=== PATIENT | female | born 1940 | race Caucasian/White ===

== ENCOUNTER → 2018-01-31 13:42 | Outpatient (CLI) | payer MEDICARE, MEDICAID, SELFPAY ==
--- NOTE | 2018-01-31 13:44 | CT_ITS ---
STUDY: CT CHEST WITHOUT CONTRAST REASON FOR EXAM: Female, 77 years old. Lung nodule, pulmonary fibrosis RADIATION DOSAGE (If Supplied By Facility): CTDIvol = ( 18.66 ) mGy, DLP = ( 540.76 ) mGycm TECHNIQUE: Transaxial imaging was performed without the administration of intravenous contrast material. Multiplanar coronal and sagittal images were reformatted. Individualized dose optimization techniques were used for this CT. COMPARISON: None. FINDINGS: The lungs are abnormal. There is subpleural honeycombing bilaterally consistent with pulmonary fibrosis. There is thickening of the septa. There is no demonstrated pleural abnormality. Coronary artery calcifications are seen. There are multiple small lymph nodes within the mediastinum, which are normal in size and morphology most compatible with reactive lymph hyperplasia. Normal hilar regions. Normal unenhanced pulmonary arteries. There is atherosclerotic calcification of the aortic arch with tortuosity and elongation of the aortic arch and descending thoracic aorta. There is an increased kyphosis of the thoracic spine. There is a small hiatal hernia. CT/Chest without Contrast IMPRESSION: Pulmonary fibrosis. No discrete nodule. Electronically Signed: Dada Rodgers DO at 13:49 EDT Tel , Service support ,
[2018-01-31 16:22] LABS: AST(SGOT) 18 U/L (15-37); Alanine Aminotransfer ALT/SGPT 19 U/L (13-56); Albumin, Serum 3.4 g/dL (3.2-5.0); Alkaline Phosphatase 118 U/L (45-117); Bilirubin, Direct 0.08 mg/dL (0.00-0.30); Globulin 3.6 g/dL (2.2-4.2)
== END ==
PROVIDERS: Family Provider Nurse Practitioner; PCP Nurse Practitioner; Visit Provider Internal Medicine Critical Care Medicine
DX: J84.10 Pulmonary fibrosis, unspecified (principal)
CPT/HCPCS: 36415; 71250; 80076

== ENCOUNTER → 2018-02-07 10:53 | Outpatient (CLI) | payer MEDICARE, MEDICAID, SELFPAY ==
[2018-02-07 11:00] VITALS: PULSE 105; PULSE 111; PULSE 115; PULSE 117; PULSE 119; PULSE 125; PULSE 99; O2SAT 82; O2SAT 88; O2SAT 92; O2SAT 94; O2SAT 96; O2SAT 97; O2SAT 98
--- NOTE | 2018-02-07 11:44 | CPS ---
Pt started at 94% RA. At 1 minute pt sats 82% increased to 2L NC and sats went up to 92%. Pt continued to walk and at minute 3 sat dropped to 88% and increased to 3L NC. Pt sat increased to 92%. Increased SOB throughout test. Pt states her son is her primary caregiver and refuses to take her anywhere if she is wearing oxygen and tells her she does not need it. Pt is interested in home health but states her current pillowcase cleaner can't find anyone to help her.
--- NOTE | 2018-02-07 13:46 | PCM.PSN.6M ---
PSN 6 Minute Walk Test - 6 Minute Walk Test 6 Minute Walk Test: 6 Minute Walk Test PSN:6-Minute Walk Test Start: 02/07/18 11:33 Freq: Status: Active Protocol: RESP.6MINW Document 02/07/18 11:00 SMB (Rec: 02/07/18 12:07 SMB [id number]) 6 Minute Walk Test Date Performed 02/07/18 Time Performed 11:00 Height 4 ft 11 in Weight: 180 lb Weight in Pounds 180.[address]: Kendell Bishop Assistive device used: None Pre-test Oxygen Delivery Method Room Air Pulse Ox (%) 94 Pulse Rate (60-100 beats/min) 99 Dyspnea Yuki Scale (0-10) 3 Exertion Yuki Scale (6-20) 8 1st minute Oxygen Delivery Method Room Air Pulse Ox (%) 82 Pulse Rate (60-100 beats/min) 119 H Number of Rests Taken 1 2nd minute Oxygen Flow Rate (L/min) (L/min) 2 Oxygen Delivery Method Nasal Cannula Pulse Ox (%) 92 Pulse Rate (60-100 beats/min) 117 H 3rd minute Oxygen Flow Rate (L/min) (L/min) 2 Oxygen Delivery Method Nasal Cannula Pulse Ox (%) 88 Pulse Rate (60-100 beats/min) 125 H Number of Rests Taken 1 4th minute Oxygen Flow Rate (L/min) (L/min) 3 Oxygen Delivery Method Nasal Cannula Pulse Ox (%) 92 Pulse Rate (60-100 beats/min) 117 H Reported Symptoms Increased Work of Breathing 5th minute Oxygen Flow Rate (L/min) (L/min) 3 Oxygen Delivery Method Nasal Cannula Pulse Ox (%) 97 Pulse Rate (60-100 beats/min) 115 H Number of Rests Taken 1 Reported Symptoms Increased Work of Breathing 6th minute Oxygen Flow Rate (L/min) (L/min) 3 Oxygen Delivery Method Nasal Cannula Pulse Ox (%) 96 Pulse Rate (60-100 beats/min) 111 H Reported Symptoms Increased Work of Breathing Post-test Oxygen Flow Rate (L/min) (L/min) 3 Oxygen Delivery Method Nasal Cannula Pulse Ox (%) 98 Pulse Rate (60-100 beats/min) 105 H Dyspnea Yuki Scale (0-10) 4 Exertion Yuki Scale (6-20) 15 Full Laps Walked 6 Partial Lap, Number of Tiles Walked 0 Total Distance Walked (ft) 354 02/07/18 11:44 Cardiopulmonary Services by Kaylee De La Torre Pt started at 94% RA. At 1 minute pt sats 82% increased to 2L NC and sats went up to 92%. Pt continued to walk and at minute 3 sat dropped to 88% and increased to 3L NC. Pt sat increased to 92%. Increased SOB throughout test. Pt states her son is her primary caregiver and refuses to take her anywhere if she is wearing oxygen and tells her she does not need it. Pt is interested in home health but states her current rn case manager can't find anyone to help her. Initialized on 02/07/18 11:44 - END OF NOTE - Interpretation Interpretation: The patient ambulated 354 feet over the course of 6 minutes beginning on room air without assistive devices or breaks. Pretesting oxygen saturation was noted to be 94% on room air. By minute 1 of testing, the patient had desaturated to 82%. 2 L/min of supplemental oxygen was applied. The patient again desaturated to 88% at minute 3 of testing. Supplemental oxygen flow rate was increased to 3 L/min. The patient was then able to complete the remainder of the test while maintaining appropriate oxygen saturations. There was evidence of significant exertional hypoxia, impaired walk distance and physiologic tachycardia with exertion. - Recommendations Recommendations: 3 L/min of supplemental oxygen should be utilized with exertion.
--- NOTE | 2018-02-07 13:49 | WT_ITS ---
PSN 6 Minute Walk Test - 6 Minute Walk Test 6 Minute Walk Test: 6 Minute Walk Test PSN:6-Minute Walk Test Start: 02/07/18 11: 33 Freq: Status: Active Protocol: RESP.6MINW Document 02/07/18 11:00 SMB (Rec: 02/07/18 12:07 SMB [id number]) 6 Minute Walk Test Date Performed 02/07/18 Time Performed 11:00 Height 4 ft 11 in Weight: 180 lb Weight in Pounds 180.[address]: Kendell Bishop Assistive device used: None Pre-test Oxygen Delivery Method Room Air Pulse Ox (%) 94 Pulse Rate (60-100 beats/min) 99 Dyspnea Yuki Scale (0-10) 3 Exertion Yuki Scale (6-20) 8 1st minute Oxygen Delivery Method Room Air Pulse Ox (%) 82 Pulse Rate (60-100 beats/min) 119 H Number of Rests Taken 1 2nd minute Oxygen Flow Rate (L/min) (L/min) 2 Oxygen Delivery Method Nasal Cannula Pulse Ox (%) 92 Pulse Rate (60-100 beats/min) 117 H 3rd minute Oxygen Flow Rate (L/min) (L/min) 2 Oxygen Delivery Method Nasal Cannula Pulse Ox (%) 88 Pulse Rate (60-100 beats/min) 125 H Number of Rests Taken 1 4th minute Oxygen Flow Rate (L/min) (L/min) 3 Oxygen Delivery Method Nasal Cannula Pulse Ox (%) 92 Pulse Rate (60-100 beats/min) 117 H Reported Symptoms Increased Work of Breathing 5th minute Oxygen Flow Rate (L/min) (L/min) 3 Oxygen Delivery Method Nasal Cannula Pulse Ox (%) 97 Pulse Rate (60-100 beats/min) 115 H Number of Rests Taken 1 Reported Symptoms Increased Work of Breathing 6th minute Oxygen Flow Rate (L/min) (L/min) 3 Oxygen Delivery Method Nasal Cannula Pulse Ox (%) 96 Pulse Rate (60-100 beats/min) 111 H Reported Symptoms Increased Work of Breathing Post-test Oxygen Flow Rate (L/min) (L/min) 3 Oxygen Delivery Method Nasal Cannula Pulse Ox (%) 98 Pulse Rate (60-100 beats/min) 105 H Dyspnea Yuki Scale (0-10) 4 Exertion Yuki Scale (6-20) 15 Full Laps Walked 6 Partial Lap, Number of Tiles Walked 0 Total Distance Walked (ft) 354 02/07/18 11:44 Cardiopulmonary Services by Kaylee De La Torre Pt started at 94% RA. At 1 minute pt sats 82% increased to 2L NC and sats went up to 92%. Pt continued to walk and at minute 3 sat dropped to 88% and increased to 3L NC. Pt sat increased to 92%. Increased SOB throughout test. Pt states her son is her primary caregiver and refuses to take her anywhere if she is wearing oxygen and tells her she does not need it. Pt is interested in home health but states her current shelter case manager can't find anyone to help her. Initialized on 02/07/18 11:44 - END OF NOTE - Interpretation Interpretation: The patient ambulated 354 feet over the course of 6 minutes beginning on room air without assistive devices or breaks. Pretesting oxygen saturation was noted to be 94% on room air. By minute 1 of testing, the patient had desaturated to 82%. 2 L/min of supplemental oxygen was applied. The patient again desaturated to 88% at minute 3 of testing. Supplemental oxygen flow rate was increased to 3 L/min. The patient was then able to complete the remainder of the test while maintaining appropriate oxygen saturations. There was evidence of significant exertional hypoxia, impaired walk distance and physiologic tachycardia with exertion. - Recommendations Recommendations: 3 L/min of supplemental oxygen should be utilized with exertion.
== END ==
PROVIDERS: Family Provider Nurse Practitioner; PCP Nurse Practitioner; Visit Provider Internal Medicine Critical Care Medicine
DX: J84.10 Pulmonary fibrosis, unspecified (principal)
CPT/HCPCS: 94618

== ENCOUNTER → 2018-02-08 11:44 | Outpatient (CLI) | payer MEDICARE, MEDICAID, SELFPAY | PROVIDERS: Family Provider Nurse Practitioner; PCP Nurse Practitioner; Visit Provider Internal Medicine | DX: R69 Illness, unspecified (principal) ==

== ENCOUNTER → 2018-02-09 09:18 | Outpatient (CLI) | payer MEDICARE, MEDICAID, SELFPAY ==
[2018-02-09 11:11] LABS: Vitamin B12 809 pg/mL (211-911)
[2018-02-09 11:12] LABS: Absolute Neutrophil Count 6.8 X10^3/uL (2.0-7.7); Basophil# 0.01 X10^3/uL; Basophil% 0.1 % (0-1); Eosinophil# 0.14 X10^3/uL; Eosinophils% 1.8 % (0-5); Hematocrit 35.2 % (37-47); Hemoglobin 10.2 g/dl (12.0-15.0); Immature Platelet Fraction 1.8 % (1.0-7.9); Lymphocyte % 7.6 % (19-41); Mean Corpuscular Hgb 22.9 pg (27.0-32.0); Mean Corpuscular Volume 78.9 fL (81-99); Mean Platelet Vol. 9.6 fl (6.2-12.0); Monocyte# 0.37 X10^3/uL; Monocyte% 4.7 % (0-10); Neutrophil # 6.79 X10^3/uL (2.7-7.7); Neutrophil % 85.5 % (47-70); Platelet Count 250 K/mm3 (150-450); RBC Distribution Width CV 25.1 % (11.6-14.6); RET-HE 27.2 pg (30-35); Red Blood Count 4.46 M/mm3 (4.2-5.4); Reticulocyte Count 4.13 % (0.5-1.5); White Blood Count 7.9 K/mm3 (4.4-11.0)
[2018-02-09 11:13] LABS: Differential Indicated SCAN CRITERIA MET; POSITIVE COUNT NO; POSITIVE DIFFERENTIAL YES; POSITIVE MORPHOLOGY YES
[2018-02-09 11:14] LABS: Platelet Estimate ADEQUATE (ADEQ); Platelet Morphology GIANT
[2018-02-09 11:15] LABS: Anisocytosis 2+; Ovalocyte 2+
[2018-02-09 11:16] LABS: Ferritin 35 ng/mL (8-252); Iron 93 ug/dL (50-170); Iron Binding Capacity,Total 419 ug/dL (250-450); LDH 195 U/L (84-246); PERCENT IRON SATURATION 22.2 % (15.0-55.0)
[2018-02-12 16:10] LABS: PROEL- A/G Ratio 1.1 (0.7-1.7); PROEL- Albumin 3.5 g/dL (2.9-4.4); PROEL- Alpha-1 Globulin 0.3 g/dL (0.0-0.4); PROEL- Beta Globulin 1.1 g/dL (0.7-1.3); PROEL- Gamma Globulin 0.9 g/dL (0.4-1.8); PROEL- Globulin, Total 3.3 g/dL (2.2-3.9); PROEL- TOTAL PROTEIN 6.8 g/dL (6.0-8.5)
[2018-02-12 16:41] LABS: Methylmalonic Acid Bld 475 nmol/L (0-378)
[2018-02-13 16:09] LABS: PROELU- Albumin, Urine 29.3 % (.); PROELU- Alpha-1-Globulin,Ur 3.7 % (.); PROELU- Alpha-2-Globulin,Ur 20.3 % (.); PROELU- Gamma Globulin, Ur 16.6 % (.); Total Protein, Ur 15.5 mg/dL (Not Estab.)
[2018-02-14 11:31] LABS: Haptoglobin 223 mg/dL (34-200)
== END ==
PROVIDERS: Family Provider Nurse Practitioner; PCP Nurse Practitioner; Visit Provider Internal Medicine
DX: D64.9 Anemia, unspecified (principal)
CPT/HCPCS: 36415; 82607; 82728; 82746; 83010; 83540; 83550; 83615; 83921; 84165; 84166; 85025; 85045

== ENCOUNTER → 2018-02-15 13:01 | Outpatient (CLI) | payer MEDICARE, SELFPAY ==
--- NOTE | 2018-02-16 08:01 | PFTCOMP ---
COMPLETE PULMONARY FUNCTION TEST INTERPRETATION Brief HPI: Patient is a 77 year old female, currently under the care of myself, who presents to [facility] for complete pulmonary function tests secondary to diagnosis of pulmonary fibrosis. Respiratory therapist reports good effort and reproducible results. Interpretation: Forced expiration spirometry shows no large airways obstructive ventilatory defect with an FEV1 of 94% predicted. There is no significant bronchodilator response by ATS criteria. Spirograms are of good quality and plateau normally. The respiratory flow volume loop shows a normal pattern. Lung volumes by body plethysmography show a normal total lung capacity at 3.68 L, 98% predicted. All other lung volumes are within normal limits. Diffusion capacity by carbon monoxide is decreased at 41% predicted. The airway resistance is elevated. No previous pulmonary function tests were available for review. Impression: Isolated reduction diffusing capacity consistent with a pulmonary vascular disorder.
== END ==
PROVIDERS: Family Provider Nurse Practitioner; PCP Nurse Practitioner; Visit Provider Internal Medicine Critical Care Medicine
DX: J84.10 Pulmonary fibrosis, unspecified (principal)
CPT/HCPCS: 94060; 94726; 94729

== ENCOUNTER → 2018-02-16 14:05 | Outpatient (CLI) | payer MEDICARE, SELFPAY ==
--- NOTE | 2018-02-16 | LES_PTH ---
PATIENT: STUART BACH LOC: [facility] U#:[id number] AGE/SX: 85/F ROOM: RE02/16/[address]: Dr. 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 SJ:jessica 02/19/18 MICROSCOPIC DESCRIPTION Slides are reviewed. GROSS DESCRIPTION Received in fixative is one container labeled with the patient's name and designated lesion of right lower lid. The specimen consists of a piece of riojas-white skin measuring 0.5 x 0.5 x 0.3 cm. The specimen is inked and submitted entirely in one cassette. It will be bisected at the time of the time of embedding. / SJ:rg 02/16/18 TC:5 CPT: 97669
== END ==
PROVIDERS: Family Provider Nurse Practitioner; Visit Provider Ophthalmology
DX: H02.822 Cysts of right lower eyelid (principal)
CPT/HCPCS: 88305

== ENCOUNTER → 2018-04-16 14:54 | Outpatient (CLI) | payer MEDICARE, SELFPAY ==
[2018-04-16 17:11] LABS: Rheumatoid Factor < 10.0 IU/mL (<15)
[2018-04-19 16:03] LABS: ANTINUCLEAR ANTIBODIES DIRECT Negative (Negative)
[2018-04-20 03:06] LABS: Cytoplasmic Ab (C-ANCA) <1:20 titer (Neg:<1:20)
[2018-04-20 11:56] LABS: CCP IgG Antibodies 5 units (0-19); Perinuclear Ab (P-ANCA) <1:20 titer (Neg:<1:20)
== END ==
PROVIDERS: Family Provider Nurse Practitioner; PCP Nurse Practitioner; Visit Provider Internal Medicine Critical Care Medicine
DX: J84.10 Pulmonary fibrosis, unspecified (principal)
CPT/HCPCS: 36415; 86038; 86200; 86225; 86235; 86256; 86431

== ENCOUNTER → 2018-05-02 13:51 | Outpatient (CLI) | payer MEDICARE, SELFPAY ==
--- NOTE | 2018-05-02 13:53 | ECHOCS_ITS ---
Reason For Study: PHTN Procedure This was a 2D Doppler, Color Flow transthoracic echocardiogram. Exam performed in department. Left Ventricle Normal size and thickness. The estimated ejection fraction is 65 %. Stage 1 diastolic dysfunction. No regional wall motion abnormalities noted. Right Ventricle Normal size and thickness. Normal systolic function. Atria Normal left atrium. Normal right atrium. Normal atrial septum. Mitral Valve The mitral valve is structurally normal. No prolapse or stenosis seen. Tricuspid Valve Normal tricuspid valve. Trivial tricuspid valve insufficiency. Right ventricular systolic pressure estimated to be 43 mmHg. Mild pulmonary hypertension. Aortic Valve Trisinus/trileaflet aortic valve. Mild diffuse aortic valve thickening. Trivial aortic valve insufficiency. Pulmonic Valve Normal pulmonic valve. Great Vessels Normal aortic root. Mild atherosclerosis of the aortic arch. Normal inferior vena cava. Inferior vena cava collapse with sniff. Pericardium/Pleural No pericardial effusion. MMode/2D Measurements & Calculations LVIDd: 3.9 cm IVSd: 1.0 cm Ao root diam: 3.1 cm LVIDs: 2.5 cm LVPWd: 1.2 cm FS: 37.6 % LAV(MOD-bp): 23.5 ml LA A4 area: 11.2 cm2 RA A4 area: 9.0 cm2 LAV(MOD-bp) Indexed: 13.5 ml/m2 LAV(MOD-sp2): 30.6 ml LAV(MOD-sp4): 18.3 ml Doppler Measurements & Calculations MV E max alex: 74.0 cm/sec Lat Peak E' Alex: 6.8 cm/sec Med Peak E' Alex: 3.2 cm/sec MV A max alex: 86.4 cm/sec E/E' lat: 10.9 E/E' med: 23.4 MV E/A: 0.86 Ao V2 max: 140.3 cm/sec AI max alex: 324.4 cm/sec LV V1 max: 103.1 cm/sec Ao max P.9 mmHg AI max P.1 mmHg LV V1 max P.3 mmHg Ao V2 mean: 95.2 cm/sec AI dec slope: 152.2 cm/sec2 Ao mean P.0 mmHg AI P1/2t: 624.5 msec Ao V2 VTI: 33.3 cm PA V2 max: 84.3 cm/sec TR max alex: 306.1 cm/sec TR max P.5 mmHg Interpretation Summary The estimated ejection fraction is 65 %. Stage 1 diastolic dysfunction. Trivial tricuspid valve insufficiency. Right ventricular systolic pressure estimated to be 43 mmHg. Mild pulmonary hypertension. Trivial aortic valve insufficiency. There is no comparison study available. Ordering Physician: Kendell Bishop Referring Physician: Tequila Dumont Performed By: Kinga Sahni RDCS, RVT
== END ==
PROVIDERS: Family Provider Nurse Practitioner; PCP Nurse Practitioner; Visit Provider Internal Medicine Critical Care Medicine
DX: I27.20 Pulmonary hypertension, unspecified (principal); J84.10 Pulmonary fibrosis, unspecified; Z98.890 Other specified postprocedural states
CPT/HCPCS: 93306

== ENCOUNTER → 2018-12-31 13:43 | Outpatient (CLI) | payer MEDICARE, SELFPAY ==
[2018-07-19 12:51] VITALS: BMI 34.1
== END ==
PROVIDERS: Family Provider Family Medicine; PCP Family Medicine
DX: J84.10 Pulmonary fibrosis, unspecified (principal)